=== PATIENT | female | born 1960 | race Caucasian/White ===

== ENCOUNTER 2017-12-12 14:32 | Emergency (ER) | payer OTHER ==
[~2017-12-12] VITALS: Ht 170.2 cm; Wt 84.2 kg
[~2017-12-12 14:32] MED LIST: LISI-461 PO; TRIA37.5 PO; [UNRECOGNIZED DRUG - CODE] PO
[2017-12-12 14:42] VITALS: Ht 170.2 cm; Wt 84.2 kg
[2017-12-12] MEDS ORDERED: SODIUM CHLORIDE 0.9% 1000ML 1,000 ML IV STA ×2 (15:28→20:17)
[2017-12-12] MEDS ORDERED: ONDANSETRON INJ 2 MG/ML 2 ML VIAL IV STA (15:28)
[2017-12-12] MEDS ORDERED: MoRPHine SULFATE 10 MG/ML CARP/VIAL IV STA (15:28)
[2017-12-12] MEDS ORDERED: ACET-1256 PO (15:30)
[2017-12-12] MEDS ORDERED: DOCU100C31 PO (15:31)
[2017-12-12] MEDS ORDERED: AMLO2.5T PO (15:31)
[2017-12-12] MEDS ORDERED: ENOX80IN SQ (15:34)
[2017-12-12] MEDS ORDERED: LEVO100T7 PO (15:35)
[2017-12-12] MEDS ORDERED: GABA-1693 PO (15:37)
[2017-12-12] MEDS ORDERED: PRLSR20 PO (15:39)
[2017-12-12] MEDS ORDERED: CMP5 PO (15:41)
[2017-12-12] MEDS ORDERED: TRAM-10 PO (15:44)
[2017-12-12 16:02] LABS: BASO % 0.3 %; BASO ABS # 0.04 K/uL (0-0.2); EOS % 0.3 %; EOS ABS # 0.04 K/uL (0-0.5); HEMATOCRIT 32.1 % (37-47); HEMOGLOBIN 10.6 g/dL (12.0-16.0); IG# 0.07 K/uL (0.00-0.02); LYMPH % 11.2 %; LYMPH ABS # 1.47 K/uL (1.2-3.4); MEAN CELL VOLUME 92.2 fL (80-100); MEAN CORPUSCULAR HEMOGLOBIN 30.5 pg (25-34); MEAN PLATELET VOLUME 10.3 fL (7.4-10.4); MONO % 6.1 %; NEUT % 81.6 %; NEUT ABS # 10.72 K/uL (1.4-6.5); PLATELET COUNT 529 K/uL (130-400); RED CELL DISTRIBUTION WIDTH CV 15.3 % (11.5-14.5); RED CELL DISTRIBUTION WIDTH SD 51.4 fL (36.4-46.3); WHITE BLOOD COUNT 13.14 K/uL (4.8-10.8)
[2017-12-12 16:28] LABS: ALBUMIN 2.4 gm/dl (3.4-5.0); CALCIUM 8.2 mg/dl (8.5-10.1); CREATININE 0.95 mg/dl (0.60-1.20); POTASSIUM 4.6 mmol/L (3.5-5.1)
--- NOTE | 2017-12-12 16:52 | EMERGENCY ROOM VISIT NOTE ---
History First contact with patient: 15:02 Chief Complaint: BACK PAIN Stated Complaint: BACK PAIN History of Present Illness The patient is a 57 year old female who presents to the Emergency Room with complaints of back pain with radiation into the right leg. The patient was recently hospitalized at [facility] in [place] due to a mass in her abdomen. She had surgery for this and was discharged to [facility]. She states that these issues are resolving. She states that she has a physical therapist coming to her home. They came 1 week ago and she states that they made her perform very difficult exercises which increased her pain. She now reports pain in the right side of her back with radiation down the right leg. The pain made it difficult to sleep last night. She is unable to find a comfortable position. She rates her pain an 8/10. She denies urinary retention, incontinence, numbness, weakness or fevers. She denies any history of back problems. Review of Systems A complete 10 point review of systems was reviewed with the patient with pertinent positives and negatives as per history of present illness. All else were negative. Past Medical/Surgical History Medical Problems: (1) Acute kidney injury (2) Anemia (3) Hydronephrosis (4) Hyperkalemia, diminished renal excretion (5) Hyponatremia (6) Metabolic acidosis Surgical Problems: (1) H/O tooth extraction Family History No pertinent family history Social History Smoking Status: Never Smoker Marital Status: Housing Status: lives with significant other Current/Historical Medications Scheduled Amlodipine (Norvasc), 2.5 MG PO DAILY Docusate Sodium (Docusate Sodium), 100 MG PO BID Enoxaparin (Lovenox), 80 MG SQ Q12H Gabapentin (Neurontin), 200 MG PO TID Levothyroxine Sodium (Levothyroxine Sodium), 100 MCG PO DAILY Omeprazole (Prilosec), 20 MG PO BID Ondasetron Odt (Zofran Odt), 4 MG SL Q6H Scheduled PRN Acetaminophen (Tylenol), 500 MG PO Q4H PRN for Pain or Fever Oxycodone Ir (Roxicodone Ir), 1-2 TAB PO Q4H PRN for Pain Prochlorperazine Maleate (Prochlorperazine Maleate), 5 MG PO Q6H PRN for Nausea or Vomiting Tramadol (Ultram), 25-50 MG PO Q4H PRN for Pain Physical Exam Vital Signs Date Time Temp Pulse Resp B/P (MAP) Pulse Ox O2 Delivery O2 Flow Rate FiO2 12/12/17 20:34 36.7 100 18 135/92 96 Room Air 12/12/17 18:32 112 18 127/85 95 Room Air 12/12/17 17:52 103 18 104/76 95 Room Air 12/12/17 15:52 99 16 117/89 95 Room Air 12/12/17 14:42 36.8 109 17 148/91 98 Room Air Physical Exam VITALS: Vitals are noted on the nurse's note and reviewed by myself. Vital signs stable. GENERAL: This is a 57-year-old female, in no acute distress, nondiaphoretic, well-developed well-nourished. SKIN: The skin was without rashes. HEART: Regular rate and rhythm without murmurs gallops or rubs. LUNGS: Clear to auscultation bilaterally without wheezes, rales or rhonchi. MUSCULOSKELETAL: There is tenderness to the right lumbar region and right posterior thigh. Full range of motion and strength 5/5 in the right lower extremity. Dorsalis pedis pulse 2+. Distal sensation intact. NEURO: Patient was alert and oriented to person place and time. Patellar reflexes 2+. Medical Decision & Procedures Laboratory Results 12/12/17 15:45 Red Blood Count 3.48, Mean Corpuscular Volume 92.2, Mean Corpuscular Hemoglobin 30.5, Mean Corpuscular Hemoglobin Concent 33.0, Mean Platelet Volume 10.3, Neutrophils (%) (Auto) 81.6, Lymphocytes (%) (Auto) 11.2, Monocytes (%) (Auto) 6.1, Eosinophils (%) (Auto) 0.3, Basophils (%) (Auto) 0.3, Neutrophils # (Auto) 10.72, Lymphocytes # (Auto) 1.47, Monocytes # (Auto) 0.80, Eosinophils # (Auto) 0.04, Basophils # (Auto) 0.04 12/12/17 15:45 Test 12/12/17 15:45 12/12/17 16:34 White Blood Count 13.14 K/uL (4.8-10.8) Red Blood Count 3.48 M/uL (4.2-5.4) Hemoglobin 10.6 g/dL (12.0-16.0) Hematocrit 32.1 % (37-47) Mean Corpuscular Volume 92.2 fL (80-100) Mean Corpuscular Hemoglobin 30.5 pg (25-34) Mean Corpuscular Hemoglobin Concent 33.0 g/dl (32-36) Platelet Count 529 K/uL (130-400) Mean Platelet Volume 10.3 fL (7.4-10.4) Neutrophils (%) (Auto) 81.6 % Lymphocytes (%) (Auto) 11.2 % Monocytes (%) (Auto) 6.1 % Eosinophils (%) (Auto) 0.3 % Basophils (%) (Auto) 0.3 % Neutrophils # (Auto) 10.72 K/uL (1.4-6.5) Lymphocytes # (Auto) 1.47 K/uL (1.2-3.4) Monocytes # (Auto) 0.80 K/uL (0.11-0.59) Eosinophils # (Auto) 0.04 K/uL (0-0.5) Basophils # (Auto) 0.04 K/uL (0-0.2) RDW Standard Deviation 51.4 fL (36.4-46.3) RDW Coefficient of Variation 15.3 % (11.5-14.5) Immature Granulocyte % (Auto) 0.5 % Immature Granulocyte # (Auto) 0.07 K/uL (0.00-0.02) Anion Gap 11.0 mmol/L (3-11) Est Creatinine Clear Calc Drug Dose 72.9 ml/min Estimated GFR () 77.1 Estimated GFR (Non- 66.5 BUN/Creatinine Ratio 14.5 (10-20) Calcium Level 8.2 mg/dl (8.5-10.1) Total Bilirubin 0.4 mg/dl (0.2-1) Aspartate Amino Transf (AST/SGOT) 28 U/L (15-37) Alanine Aminotransferase (ALT/SGPT) 16 U/L (12-78) Alkaline Phosphatase 111 U/L (45-117) Total Protein 7.0 gm/dl (6.4-8.2) Albumin 2.4 gm/dl (3.4-5.0) Globulin 4.6 gm/dl (2.5-4.0) Albumin/Globulin Ratio 0.5 (0.9-2) Chemistry Specimen Hemolysis Urine Color YELLOW Urine Appearance CLEAR (CLEAR) Urine pH 5.5 (4.5-7.5) Urine Specific Crane 1.016 (1.000-1.030) Urine Protein TRACE (NEG) Urine Glucose (UA) NEG (NEG) Urine Ketones 1+ (NEG) Urine Occult Blood NEG (NEG) Urine Nitrite NEG (NEG) Urine Bilirubin NEG (NEG) Urine Urobilinogen NEG (NEG) Urine Leukocyte Esterase SMALL (NEG) Urine WBC (Auto) 10-30 /hpf (0-5) Urine RBC (Auto) 0-4 /hpf (0-4) Urine Hyaline Casts (Auto) 1-5 /lpf (0-5) Urine Epithelial Cells (Auto) >30 /lpf (0-5) Urine Bacteria (Auto) 1+ (NEG) Medications Administered Medications (Trade) Dose Ordered Sig/Neto Route Start Time Stop Time Status Last Admin Dose Admin Sodium Chloride 1,000 ml @ 999 mls/hr Q1H1M STAT IV 12/12/17 15:28 12/12/17 16:28 DC 12/12/17 15:52 999 MLS/HR Morphine Sulfate (MoRPHine SULFATE INJ) 8 mg NOW STAT IV 12/12/17 15:28 12/12/17 15:30 DC 12/12/17 15:51 8 MG Ondansetron HCl (Zofran Inj) 4 mg NOW STAT IV 12/12/17 15:28 12/12/17 15:30 DC 12/12/17 15:52 4 MG Morphine Sulfate (MoRPHine SULFATE INJ) 4 mg NOW STAT IV 12/12/17 18:57 12/12/17 18:58 DC 12/12/17 19:19 4 MG Ondansetron HCl (Zofran Inj) 4 mg STK-MED ONCE .ROUTE 12/12/17 19:17 12/12/17 19:18 DC 12/12/17 19:19 4 MG Oxycodone HCl (Roxicodone Immediate Rel 5MG Home Pack) 1 homepack UD ONCE PO 12/12/17 20:45 12/12/17 20:46 DC 12/12/17 20:51 1 HOMEPACK Ondansetron HCl (ZOFRAN ODT 4MG Home Pack) 1 homepack UD ONCE PO 12/12/17 20:45 12/12/17 20:46 DC 12/12/17 20:51 1 HOMEPACK Medical Decision Differential diagnosis includes cauda equina syndrome, cord compression, disc herniation, muscle spasm, lumbar strain, epidural abscess, malignancy, transverse myelitis, urinary tract infection, colitis, diverticulitis, kidney stone, among others. The patient is a 57-year-old female who presents today complaining of right- sided low back pain with radiation into the right thigh. Her pain started after physical therapy. She feels like her physical therapist worked her too hard. Her hamstring is very tight on exam. She does not have any numbness, weakness or incontinence to suggest cauda equina syndrome or cord compression. Labs were performed due to patient's feelings that she might be dehydrated. Labs revealed mild leukocytosis and anemia, improving from previous visit. Patient is slightly hyponatremic. Carbon dioxide level low at 17, although review of outpatient labs shows that this is chronic for the patient, likely due to GI losses. Patient was hydrated with 1 L normal saline solution. Her back pain was treated with morphine with significant improvement. I was concerned as the patient's heart rate had increased throughout her stay, although she admits she is feeling very anxious due to being in the hospital. She requested to be discharged home and I do think this is reasonable. She will be given a course of pain medication for her back pain and was advised to follow-up very closely with her primary care provider. She may benefit from a course of steroids but I recommended that she contact her PCP regarding this. She was advised to return with any worsening or new/concerning symptoms. The patient's case was reviewed with Dr. Melendrez, ED attending physician, who agreed with my assessment and treatment plan. Based on the patient's presentation and work up, I feel the patient is stable for outpatient treatment. The patient was educated to return to the emergency department for any worsening of their current condition or new/concerning symptoms. She will follow up with her PCP. [place] Drug Monitoring Program Search Results: patient reviewed within database, no issues identified Medication Reconcilliation Current Medication List: was personally reviewed by me Blood Pressure Screening Patient's blood pressure: Normal blood pressure Impression Primary Impression: Lumbar radiculopathy Departure Information Dispostion Home / Self-Care Condition FAIR Prescriptions Ondasetron Odt (ZOFRAN ODT) 4 Mg Tab 4 MG SL Q6H for Nausea, #20 TAB Prov: Erum Dobbs PA-C 12/12/17 Oxycodone Ir (Roxicodone Ir) 5 Mg Tab 1-2 TAB PO Q4H Y for Pain, #20 TAB For Initial Treatment Prov: Erum oDbbs PA-C 12/12/17 Referrals Roxanne Roberson M.D. (PCP) Patient Instructions My [facility] Additional Instructions You have been treated in the Emergency Department for Back Pain. You have received pain medicine in the emergency department which impairs your ability to operate a vehicle. It is illegal for you to drive after receiving these medicines. You have been prescribed Oxy IR to be used for pain control. This is a narcotic medication. You cannot drive or consume alcohol while on this medicine. This medicine should only be used for pain that cannot be controlled with over-the- counter pain medicines. For pain control, you can use the following [id number] medicines (if >12 yo): - Regular strength (325mg/tab) Tylenol (acetaminophen) 2 tabs every 4-6 hours as needed. Do not exceed 12 tablets in a 24 hour period. Avoid taking more than 4 grams (4000 mg) of Tylenol per day. This includes any other sources of acetaminophen you may take on a regular basis. Try gentle stretching to stretch the back and hamstring. You will need to follow-up with your primary care provider within 48 hours. Make sure to rest and drink plenty of fluids. Return to the Emergency Department if your current symptoms worsen despite treatment course outlined above, or if you develop any of the following symptoms : intractable pain despite aforementioned treatment course, loss of control of your bowel or bladder, numbness or tingling in your groin, or development of a fever.
[2017-12-12] MEDS ORDERED: MoRPHine SULFATE 4 MG/ML 1 ML CARP\\VIAL IV STA (18:57)
[2017-12-12] MEDS ORDERED: ONDANSETRON INJ 2 MG/ML 2 ML VIAL ONE (19:17)
[2017-12-12 20:34] VITALS: BP 135/92; PULSE 100; TEMP 36.7; O2SAT 96
[2017-12-12] MEDS ORDERED: ONDA4TAB10 SL (20:43)
[2017-12-12] MEDS ORDERED: OXYC-90 PO (20:43)
[2017-12-12] MEDS ORDERED: OXYCODONE IR HOME PACK PO ONE (20:45)
[2017-12-12] MEDS ORDERED: ONDANSETRON HOME PACK 4MG OD TAB PO ONE (20:45)
--- NOTE | 2017-12-14 20:19 | Pharmacy Progress Note ---
ED Pharmacist Culture FollowUp Date of Service: Dec 14, 2017. Called patient regarding Klebsiella isolated in urine culture. Left voicemail requesting call back and provided ED phone number.
== END 2017-12-12 20:52 | disposition home or self-care (01) ==
LOC: EDBD 14:32 → C.EDB 14:33
DX: M54.16 Radiculopathy, lumbar region (principal); X50.1XXA Overexertion from prolonged static or awkward postures, initial encounter; D64.9 Anemia, unspecified; E87.1 Hypo-osmolality and hyponatremia; E86.0 Dehydration; Z98.890 Other specified postprocedural states; Z79.01 Long term (current) use of anticoagulants; Z79.899 Other long term (current) drug therapy

== ENCOUNTER → 2017-12-15 | Outpatient (CLI) | payer OTHER ==
[~2017-12-15] MED LIST changes: +ACET-1256 PO; +AMLO2.5T PO; +CMP5 PO; +DOCU100C31 PO; +ENOX80IN SQ; +GABA-1693 PO; +LEVO100T7 PO; -LISI-461 PO; +ONDA4TAB10 SL; +OXYC-90 PO; +PRLSR20 PO; +TRAM-10 PO; -TRIA37.5 PO; -[UNRECOGNIZED DRUG - CODE] PO
--- NOTE | 2017-12-26 07:22 | CODING QUERY NO DIAGNOSIS ---
Valid Physician Order Needed A valid physician order must be submitted in order to properly bill for the service(s) provided, including date of service(s), valid diagnosis, and physician signature. If these tests are done on a recurring basis the original physician order must be submitted in order to code and bill for the service(s) provided. Please fax us the original, signed physician order so that we may expedite billing to [phone] DOS 12/15/2017 * ANTI-XA LOW MOLEC WEIGHT HEPAR Thank you Mani [facility] Information Management
== END | disposition home or self-care (01) ==
LOC: C.LABSPEC 16:17
PROVIDERS: ATTEND Internal Medicine
DX: M54.9 Dorsalgia, unspecified (principal)